=== PATIENT | female | born 1935 | race Caucasian/White ===

== ENCOUNTER 2018-02-11 09:39 | Emergency (ER) | payer MEDICARE, OTHER ==
[~2018-02-11] VITALS: Ht 165.1 cm; Wt 72.6 kg
[~2018-02-11 09:39] MED LIST: Aspir-Low81 MG PO; CARV6.25 PO; FURO20 PO; GLYBURIDE PO; HYDACE10B PO; INDERIDE; LEVSOD50 PO; POTCHL20ER PO; PRAV20 PO; SYNTHROID; UNK DIURETIC; VALD20 PO; VENLAFAXINE HC150 MG PO; ZOLP10 PO
[2018-02-11] MEDS ORDERED: ALLO300 PO (10:43)
[2018-02-11 10:52] LABS: BASOPHILS ABSOLUTE AUTO 0.05 K/mm3 (0.00-0.23); BASOPHILS PERCENT AUTO 0 % (0-2); EOSINOPHILS ABSOLUTE AUTO 0.17 K/mm3 (0.00-0.68); EOSINOPHILS PERCENT AUTO 1 % (0-6); Hemoglobin 11.2 g/dL (11.5-16.0); IMMATURE GRAN ABSOLUTE AUTO 0.14 K/mm3 (0.00-0.10); IMMATURE GRAN PERCENT AUTO 1 % (0-1); LYMPHOCYTES PERCENT AUTO 12 % (21-46); MONOCYTES ABSOLUTE AUTO 1.23 K/mm3 (0.16-1.47); MONOCYTES PERCENT AUTO 8 % (4-13); Mean Corpuscular HGB 30.5 pg (26.0-34.0); Mean Corpuscular HGB Conc 32.9 g/dL (31.5-36.5); Mean Corpuscular Volume 93 fL (80-100); Mean Platelet Volume 9.2 fL (9.1-12.4); NEUTROPHILS ABSOLUTE AUTO 12.03 K/mm3 (1.96-9.15); NEUTROPHILS PERCENT AUTO 78 % (41-73); Platelet Count 279 K/mm3 (150-400); RDW Coefficient Variation 13.7 % (11.7-14.2); RDW Standard Deviation 46.6 fL (35.1-46.3); Red Blood Cell Count 3.67 M/mm3 (3.80-5.20); White Blood Cell Count 15.52 K/mm3 (4.00-11.30)
[2018-02-11 11:17] LABS: Alanine Aminotransfer (ALT/SGP 33 U/L (12-78); Albumin, Blood 3.6 g/dL (3.4-5.0); Albumin/Globulin Ratio 0.9 (0.8-1.8); Alk Phos 68 U/L (50-136); Anion Gap 8 mmol/L (6-16); Aspartate Aminotrans (AST/SGOT 31 U/L (12-37); Bilirubin, Total 0.2 mg/dL (0.1-1.0); Blood Urea Nitrogen 26 mg/dL (8-24); Bun/Creatinine Ratio 20.5 (12.0-20.0); CO2, Blood 25 mmol/L (21-32); Chloride, Blood 103 mmol/L (98-108); Creatinine, Blood 1.27 mg/dL (0.40-1.00); Globulin, Blood 4.1 g/dL (2.2-4.0); Glomerular Filtration Rate 43 (60-); Glucose, Blood 147 mg/dL (70-99); Potassium, Blood 4.4 mmol/L (3.5-5.5); Sodium, Blood 136 mmol/L (136-145); Total Protein, Blood 7.7 g/dL (6.4-8.2); Troponin I <0.015 ng/mL (0.000-0.040)
[2018-02-11] MEDS ORDERED: Percocet 5-3251 EACH PO (13:49)
== END 2018-02-11 14:05 | disposition home or self-care (01) ==
LOC: ER 09:39 → MEDS 09:40 → ER 09:40 → MEDS 09:40 → ER 14:05 → PCU 15:05 → MEDS 15:05 → PCU 15:05
PROVIDERS: Emergency Medicine
DX: S42.251A Displaced fracture of greater tuberosity of right humerus, initial encounter for closed fracture (principal); S32.591A Other specified fracture of right pubis, initial encounter for closed fracture; S42.291A Other displaced fracture of upper end of right humerus, initial encounter for closed fracture; I10 Essential (primary) hypertension; E11.9 Type 2 diabetes mellitus without complications; E78.00 Pure hypercholesterolemia, unspecified; E03.9 Hypothyroidism, unspecified; F32.9 Major depressive disorder, single episode, unspecified; Z79.899 Other long term (current) drug therapy; Z79.82 Long term (current) use of aspirin; Z79.84 Long term (current) use of oral hypoglycemic drugs; W19.XXXA Unspecified fall, initial encounter; Y92.000 Kitchen of unspecified non-institutional (private) residence as the place of occurrence of the external cause
CPT/HCPCS: 29105; 72170; 73060; 73552; 80053; 83735; 84484; 85025; 93005; 93010; 96374; 96375; 99285-25; J2405; J3010

== ENCOUNTER 2018-02-15 23:41 | Inpatient (IN) | payer MEDICARE, OTHER ==
[~2018-02-15] VITALS: Ht 162.6 cm; Wt 76.9 kg
[~2018-02-15 23:41] MED LIST changes: +ALLO300 PO; +Percocet 5-3251 EACH PO
[2018-02-15] MEDS ORDERED: Hydrocodone-Ap1 EA20 PO (23:57)
[2018-02-16 02:09] LABS: BASOPHILS ABSOLUTE AUTO 0.03 K/mm3 (0.00-0.23); BASOPHILS PERCENT AUTO 0 % (0-2); EOSINOPHILS ABSOLUTE AUTO 0.22 K/mm3 (0.00-0.68); EOSINOPHILS PERCENT AUTO 2 % (0-6); Hematocrit 25.6 % (33.0-51.0); Hemoglobin 8.6 g/dL (11.5-16.0); IMMATURE GRAN ABSOLUTE AUTO 0.04 K/mm3 (0.00-0.10); IMMATURE GRAN PERCENT AUTO 0 % (0-1); LYMPHOCYTES ABSOLUTE AUTO 1.22 K/mm3 (0.84-5.20); LYMPHOCYTES PERCENT AUTO 14 % (21-46); MONOCYTES ABSOLUTE AUTO 0.73 K/mm3 (0.16-1.47); MONOCYTES PERCENT AUTO 8 % (4-13); Mean Corpuscular HGB 30.7 pg (26.0-34.0); Mean Corpuscular HGB Conc 33.6 g/dL (31.5-36.5); Mean Corpuscular Volume 91 fL (80-100); Mean Platelet Volume 9.4 fL (9.1-12.4); NEUTROPHILS ABSOLUTE AUTO 6.77 K/mm3 (1.96-9.15); NEUTROPHILS PERCENT AUTO 75 % (41-73); Platelet Count 244 K/mm3 (150-400); RDW Coefficient Variation 13.9 % (11.7-14.2); RDW Standard Deviation 46.2 fL (35.1-46.3); White Blood Cell Count 9.01 K/mm3 (4.00-11.30)
[2018-02-16 02:29] LABS: Alanine Aminotransfer (ALT/SGP 39 U/L (12-78); Albumin, Blood 2.4 g/dL (3.4-5.0); Albumin/Globulin Ratio 0.6 (0.8-1.8); Alk Phos 68 U/L (50-136); Anion Gap 15 mmol/L (6-16); Aspartate Aminotrans (AST/SGOT 59 U/L (12-37); Bilirubin, Total 0.4 mg/dL (0.1-1.0); Blood Urea Nitrogen 91 mg/dL (8-24); Bun/Creatinine Ratio 18.6 (12.0-20.0); CO2, Blood 19 mmol/L (21-32); Chloride, Blood 97 mmol/L (98-108); Globulin, Blood 4.3 g/dL (2.2-4.0); Glomerular Filtration Rate 9 (60-); Glucose, Blood 109 mg/dL (70-99); Potassium, Blood 5.3 mmol/L (3.5-5.5); Sodium, Blood 131 mmol/L (136-145); Total Protein, Blood 6.7 g/dL (6.4-8.2); Troponin I <0.015 ng/mL (0.000-0.040)
[2018-02-16 10:11] LABS: Source, Urine Catheter
[2018-02-16 10:30] LABS: Blood, Urine 1+ (Neg); Glucose Qualitative, Urine Neg (Neg); Ketones, Urine Neg (Neg); Leukocyte Esterase, Urine 1+ (Neg); Nitrite, Urine Neg (Neg); Protein, Urine 1+ (Neg); Urobilinogen, Urine NORM (Normal)
[2018-02-16 10:41] LABS: Appearance, Urine Hazy (Clear); Bilirubin, Urine 1+ (Neg); Color, Urine Yellow (P-Yellow)
[2018-02-16 10:42] LABS: Red Blood Cells, Urine 0-2 /hpf (0-2); Squamous Epithelial Cells Few /hpf (Few)
[2018-02-16 10:43] LABS: Bacteria Few /hpf; Granular Casts Rare /lpf (0)
[2018-02-16] MEDS ORDERED: CARV3.125 PO (12:28)
[2018-02-16] MEDS ORDERED: PRAV20 PO (12:30)
[2018-02-16] MEDS ORDERED: VENL150ER PO (12:36)
[2018-02-16] MEDS ORDERED: DONE5 PO (12:37)
[2018-02-16] MEDS ORDERED: PIOG30 PO (12:51)
[2018-02-16] MEDS ORDERED: HYDCHL25 PO (12:52)
[2018-02-16] MEDS ORDERED: LISI20 PO (12:52)
[2018-02-16] MEDS ORDERED: GLIM2 PO (12:53)
[2018-02-16] MEDS ORDERED: ZOLP10 PO (12:54)
[2018-02-16] MEDS ORDERED: LORA1 PO (12:55)
[2018-02-17 04:21] LABS: BASOPHILS ABSOLUTE AUTO 0.02 K/mm3 (0.00-0.23); BASOPHILS PERCENT AUTO 0 % (0-2); EOSINOPHILS ABSOLUTE AUTO 0.32 K/mm3 (0.00-0.68); EOSINOPHILS PERCENT AUTO 4 % (0-6); Hematocrit 24.7 % (33.0-51.0); IMMATURE GRAN ABSOLUTE AUTO 0.06 K/mm3 (0.00-0.10); IMMATURE GRAN PERCENT AUTO 1 % (0-1); LYMPHOCYTES PERCENT AUTO 22 % (21-46); MONOCYTES ABSOLUTE AUTO 0.89 K/mm3 (0.16-1.47); MONOCYTES PERCENT AUTO 11 % (4-13); Mean Corpuscular HGB 29.6 pg (26.0-34.0); Mean Corpuscular HGB Conc 32.4 g/dL (31.5-36.5); Mean Corpuscular Volume 92 fL (80-100); Mean Platelet Volume 9.4 fL (9.1-12.4); NEUTROPHILS ABSOLUTE AUTO 5.11 K/mm3 (1.96-9.15); NEUTROPHILS PERCENT AUTO 62 % (41-73); Platelet Count 260 K/mm3 (150-400); RDW Standard Deviation 46.1 fL (35.1-46.3)
[2018-02-17 04:46] LABS: Albumin, Blood 2.2 g/dL (3.4-5.0); Albumin/Globulin Ratio 0.5 (0.8-1.8); Bilirubin, Total 0.6 mg/dL (0.1-1.0); Bun/Creatinine Ratio 24.2 (12.0-20.0); Calcium, Blood 8.2 mg/dL (8.5-10.1); Creatinine, Blood 3.72 mg/dL (0.40-1.00); Globulin, Blood 4.4 g/dL (2.2-4.0); Potassium, Blood 4.8 mmol/L (3.5-5.5); Total Protein, Blood 6.6 g/dL (6.4-8.2)
[2018-02-17 04:52] LABS: Thyroid Stimulating Hormone 0.903 uIU/mL (0.360-4.800)
[2018-02-17 12:11] LABS: Bun/Creatinine Ratio 27.9 (12.0-20.0); Calcium, Blood 8.6 mg/dL (8.5-10.1); Creatinine, Blood 3.08 mg/dL (0.40-1.00); Potassium, Blood 4.5 mmol/L (3.5-5.5)
[2018-02-18 04:54] LABS: BASOPHILS ABSOLUTE AUTO 0.02 K/mm3 (0.00-0.23); BASOPHILS PERCENT AUTO 0 % (0-2); EOSINOPHILS ABSOLUTE AUTO 0.35 K/mm3 (0.00-0.68); EOSINOPHILS PERCENT AUTO 4 % (0-6); Hematocrit 26.9 % (33.0-51.0); Hemoglobin 8.8 g/dL (11.5-16.0); IMMATURE GRAN ABSOLUTE AUTO 0.18 K/mm3 (0.00-0.10); IMMATURE GRAN PERCENT AUTO 2 % (0-1); LYMPHOCYTES ABSOLUTE AUTO 1.55 K/mm3 (0.84-5.20); LYMPHOCYTES PERCENT AUTO 19 % (21-46); MONOCYTES ABSOLUTE AUTO 0.92 K/mm3 (0.16-1.47); MONOCYTES PERCENT AUTO 11 % (4-13); Mean Corpuscular HGB 29.8 pg (26.0-34.0); Mean Corpuscular HGB Conc 32.7 g/dL (31.5-36.5); Mean Corpuscular Volume 91 fL (80-100); Mean Platelet Volume 9.5 fL (9.1-12.4); NEUTROPHILS ABSOLUTE AUTO 5.32 K/mm3 (1.96-9.15); NEUTROPHILS PERCENT AUTO 64 % (41-73); Platelet Count 331 K/mm3 (150-400); RDW Coefficient Variation 14.2 % (11.7-14.2); RDW Standard Deviation 47.1 fL (35.1-46.3); Red Blood Cell Count 2.95 M/mm3 (3.80-5.20); White Blood Cell Count 8.34 K/mm3 (4.00-11.30)
[2018-02-19 04:17] LABS: Hematocrit 26.3 % (33.0-51.0); Hemoglobin 8.6 g/dL (11.5-16.0); Mean Corpuscular HGB 29.8 pg (26.0-34.0); Mean Corpuscular HGB Conc 32.7 g/dL (31.5-36.5); Mean Corpuscular Volume 91 fL (80-100); Mean Platelet Volume 9.1 fL (9.1-12.4); Platelet Count 366 K/mm3 (150-400); RDW Coefficient Variation 14.3 % (11.7-14.2); RDW Standard Deviation 47.2 fL (35.1-46.3); Red Blood Cell Count 2.89 M/mm3 (3.80-5.20)
[2018-02-19 04:36] LABS: Albumin, Blood 2.2 g/dL (3.4-5.0); Albumin/Globulin Ratio 0.5 (0.8-1.8); Bilirubin, Total 0.4 mg/dL (0.1-1.0); Bun/Creatinine Ratio 38.7 (12.0-20.0); Creatinine, Blood 1.19 mg/dL (0.40-1.00); Globulin, Blood 4.6 g/dL (2.2-4.0); Potassium, Blood 4.7 mmol/L (3.5-5.5); Total Protein, Blood 6.8 g/dL (6.4-8.2)
[2018-02-19 05:04] LABS: BAND PERCENT MAN 1 % (0-8); BASOPHILS PERCENT MAN 0 % (0-2); EOSINOPHILS ABSOLUTE MAN 0.08 K/mm3 (0.00-0.68); EOSINOPHILS PERCENT MAN 1 % (0-6); LYMPHOCYTES ABSOLUTE MAN 1.42 K/mm3 (0.84-5.20); LYMPHOCYTES PERCENT MAN 16 % (21-46); METAMYELOCYTE ABSOLUTE MAN 0.17 K/mm3 (0.00-0.00); METAMYELOCYTE PERCENT MAN 2 % (0-0); MONOCYTES ABSOLUTE MAN 0.26 K/mm3 (0.16-1.47); MONOCYTES PERCENT MAN 3 % (4-13); NEUTROPHILS ABSOLUTE MAN 6.94 K/mm3 (1.96-9.15); SEG NEUTROPHILS PERCENT MAN 77 % (41-73); TOTAL CELLS COUNTED 100
[2018-02-20 04:21] LABS: Hematocrit 26.6 % (33.0-51.0); Hemoglobin 8.6 g/dL (11.5-16.0); Mean Corpuscular HGB Conc 32.3 g/dL (31.5-36.5); Mean Corpuscular Volume 93 fL (80-100); Mean Platelet Volume 8.7 fL (9.1-12.4); Platelet Count 389 K/mm3 (150-400); RDW Coefficient Variation 14.4 % (11.7-14.2); RDW Standard Deviation 48.5 fL (35.1-46.3); Red Blood Cell Count 2.87 M/mm3 (3.80-5.20); White Blood Cell Count 9.98 K/mm3 (4.00-11.30)
[2018-02-20 04:39] LABS: Bun/Creatinine Ratio 32.6 (12.0-20.0); Calcium, Blood 8.9 mg/dL (8.5-10.1); Creatinine, Blood 0.98 mg/dL (0.40-1.00); Potassium, Blood 4.4 mmol/L (3.5-5.5)
[2018-02-20 04:46] LABS: Percent Saturation 8.9 % (15.0-50.0)
[2018-02-20 05:04] LABS: BAND PERCENT MAN 1 % (0-8); BASOPHILS PERCENT MAN 0 % (0-2); EOSINOPHILS ABSOLUTE MAN 0.49 K/mm3 (0.00-0.68); EOSINOPHILS PERCENT MAN 5 % (0-6); LYMPHOCYTES % ATYPICAL MANUAL 1 % (0-0); LYMPHOCYTES ABSOLUTE MAN 1.89 K/mm3 (0.84-5.20); LYMPHOCYTES PERCENT MAN 18 % (21-46); MONOCYTES ABSOLUTE MAN 0.79 K/mm3 (0.16-1.47); MONOCYTES PERCENT MAN 8 % (4-13); MYELOCYTE ABSOLUTE MAN 0.09 K/mm3 (0.00-0.00); MYELOCYTE PERCENT MAN 1 % (0-0); NEUTROPHILS ABSOLUTE MAN 6.68 K/mm3 (1.96-9.15); SEG NEUTROPHILS PERCENT MAN 66 % (41-73); TOTAL CELLS COUNTED 100
[2018-02-22] MEDS ORDERED: ACET325 PO (12:24)
[2018-02-22] MEDS ORDERED: AMLO5 PO (12:30)
[2018-02-22] MEDS ORDERED: Ferrous Sulfat325 M2 PO (12:31)
[2018-02-22] MEDS ORDERED: DOCU100 PO (12:31)
[2018-02-22] MEDS ORDERED: LEVO750 PO (12:32)
[2018-02-22] MEDS ORDERED: POLYOX WSR-3011 GM PO (12:33)
== END 2018-02-22 13:09 | disposition home health service (06) | DRG 177 ==
LOC: ER 23:41 → PCU 02-16 06:21 → SURS 02-16 14:12
PROVIDERS: Emergency Medicine; Internal Medicine
DX: J69.0 Pneumonitis due to inhalation of food and vomit (principal); G93.40 Encephalopathy, unspecified; N17.9 Acute kidney failure, unspecified; S32.9XXA Fracture of unspecified parts of lumbosacral spine and pelvis, initial encounter for closed fracture; S42.301D Unspecified fracture of shaft of humerus, right arm, subsequent encounter for fracture with routine healing; S32.9XXD Fracture of unspecified parts of lumbosacral spine and pelvis, subsequent encounter for fracture with routine healing; D50.9 Iron deficiency anemia, unspecified; E11.9 Type 2 diabetes mellitus without complications; I10 Essential (primary) hypertension; E78.5 Hyperlipidemia, unspecified; E03.9 Hypothyroidism, unspecified; M10.9 Gout, unspecified; D63.8 Anemia in other chronic diseases classified elsewhere; E86.0 Dehydration; K59.00 Constipation, unspecified; Z85.3 Personal history of malignant neoplasm of breast; Z85.42 Personal history of malignant neoplasm of other parts of uterus; Z79.84 Long term (current) use of oral hypoglycemic drugs; Z79.82 Long term (current) use of aspirin; Z79.899 Other long term (current) drug therapy
CPT/HCPCS: 36415; 70450; 71046; 72125; 73030; 73200; 74176; 76377; 80048; 80053; 81001; 82652; 82728; 82947; 83540; 83550; 83880; 84443; 84484; 85025; 85027; 87086; 92610; 93005; 93010; 94762; 96361; 96365; 97110; 97116; 97162; 97166; 97530; 97535; 99285-25; G8978; G8979; G8987; G8988; G8996; G8997; G8998; J1650; J1956; J2405; J3010; J7030

== ENCOUNTER 2022-04-01 06:13 | Day surgery (SDC) | payer MEDICARE, OTHER ==
[~2022-04-01] VITALS: Ht 162.6 cm; Wt 64.0 kg
[~2022-04-01 06:13] MED LIST changes: +ACET325 PO; +AMLO5 PO; +CARV3.125 PO; +Carvedilol12.5 MG PO; +DOCU100 PO; +DONEPEZIL HCL10 MG PO; +Ferrous Sulfat325 M2 PO; +GLIM2 PO; +GLIM4 PO; +HYDCHL25 PO; +HYDCHL50 PO; +Hydrocodone-Ap1 EA20 PO; +LEVO750 PO; +LISI20 PO; +LORA1 PO; +METO25ER PO; +PIOG30 PO; +POLYOX WSR-3011 GM PO; +VENL150ER PO; +XARELTO2.5 M1 PO; +Zestril40 MG PO
--- NOTE | 2022-04-01 10:15 | NUR ---
PT BACK TO RECOVERY ROOM VIA BED AFTER PROCEDURE. DROWSY, BUT EASILY ROUSES TO VERBAL STIMULI. LEFT GROIN SITE WITH TEGADERM AND SCOOBY PATCH. NO BLEEDING OR SWELLING AT SITE.
--- NOTE | 2022-04-01 11:04 | NUR ---
PT SLEEPING IN NO DISTRESS. VSS, CALL LIGHT IN REACH. LEFT GROIN SITE REMAINS SOFT AND NON-TENDER. DAUGHTER AT BEDSIDE.
--- NOTE | 2022-04-01 11:26 | NUR ---
RX FOR PLAVIX CALLED TO [facility] IN [place]
--- NOTE | 2022-04-01 12:34 | NUR ---
DR HAY AT BEDSIDE SPEAKING WITH PT AND DAUGHTER ABOUT PROCEDURE AND PLAN OF CARE.
--- NOTE | 2022-04-01 13:00 | NUR ---
IV DC'D, CATH INTACT. PT AND DAUGHTER GIVEN DC INSTRUCTIONS, VERBALIZED UNDERSTANDING. PT OUT TO CAR VIA WHEELCHAIR, WILL RETURN IN TWO WEEKS FOR LEFT LEG PROCEDURE.
[2022-04-04] MEDS ORDERED: LEVSOD75 PO (10:43)
[2022-04-04] MEDS ORDERED: Aspir 8181 MG PO (10:43)
[2022-04-04] MEDS ORDERED: Ativan1 MG PO (10:44)
[2022-04-04] MEDS ORDERED: 1/2 NS 250ml250 ML (10:44)
[2022-04-04] MEDS ORDERED: CLOP75 PO (10:44)
[2022-04-04] MEDS ORDERED: Hydrocortiso453.6 G1 (17:58)
[2022-04-04] MEDS ORDERED: Ketoconazole15 GM TOP (18:00)
[2022-04-04] MEDS ORDERED: MUPIROCIN1 G1 TOP (18:00)
[2022-04-04] MEDS ORDERED: [UNRECOGNIZED DRUG - CODE] (18:05)
[2022-04-04] MEDS ORDERED: Phenergan25 M1 PO (18:09)
== END 2022-04-01 13:00 | disposition home or self-care (01) ==
LOC: MHTC 06:13 → ORSCMMR 06:14 → MHTC 10:05
DX: E11.51 Type 2 diabetes mellitus with diabetic peripheral angiopathy without gangrene (principal); I70.213 Atherosclerosis of native arteries of extremities with intermittent claudication, bilateral legs; I10 Essential (primary) hypertension
CPT/HCPCS: 37221; 75625; 75716; 75774; 76937; 82947; 85347; 99152; 99153; C1725; C1760; C1769; C1876; C1887; C1894; C9764; C9772; J1644; J2250; J3010; J7030; J7040; J7042; Q9967

== ENCOUNTER → 2022-04-18 | Outpatient (CLI) | payer MEDICARE, OTHER ==
[~2022-04-18] MED LIST changes: +1/2 NS 250ml250 ML; +Amlodipine Bes2.5 MG PO; +Aspir 8181 MG PO; +Ativan1 MG PO; +CLOP75 PO; +Hydrocortiso453.6 G1; +Ketoconazole15 GM TOP; +LEVSOD75 PO; +MUPIROCIN1 G1 TOP; +Phenergan25 M1 PO; +SENN187 PO; +VANCOMYCIN HCL1 G1 IV; +VISBIOME 112.51 EACH PO; +[UNRECOGNIZED DRUG - CODE]
[2022-04-18 12:28] LABS: Hematocrit 32.6 % (33.0-51.0); Hemoglobin 10.8 g/dL (11.5-16.0); Mean Corpuscular HGB 30.8 pg (26.0-34.0); Mean Corpuscular HGB Conc 33.1 g/dL (31.5-36.5); Mean Corpuscular Volume 93 fL (80-100); Mean Platelet Volume 8.6 fL (9.1-12.4); Platelet Count 610 K/mm3 (150-400); RDW Coefficient Variation 14.5 % (11.7-14.2); RDW Standard Deviation 49.1 fL (35.1-46.3); Red Blood Cell Count 3.51 M/mm3 (3.80-5.20); White Blood Cell Count 7.28 K/mm3 (4.00-11.30)
[2022-04-18 12:48] LABS: Alanine Aminotransfer (ALT/SGP 26 U/L (12-78); Albumin, Blood 3.7 g/dL (3.4-5.0); Alk Phos 110 U/L (50-136); Anion Gap 5 mmol/L (6-16); Aspartate Aminotrans (AST/SGOT 23 U/L (12-37); Bilirubin, Total 0.3 mg/dL (0.1-1.0); Blood Urea Nitrogen 25 mg/dL (8-24); Bun/Creatinine Ratio 24.8 (12.0-20.0); CO2, Blood 28 mmol/L (21-32); Chloride, Blood 103 mmol/L (98-108); Creatinine, Blood 1.01 mg/dL (0.40-1.00); Globulin, Blood 3.8 g/dL (2.2-4.0); Glomerular Filtration Rate 54 (60-); Glucose, Blood 112 mg/dL (70-99); Potassium, Blood 4.4 mmol/L (3.5-5.5); Sodium, Blood 136 mmol/L (136-145); Total Protein, Blood 7.5 g/dL (6.4-8.2); Vancomycin, Trough 16.2 ug/mL (5.0-10.0)
== END | disposition home or self-care (01) ==
LOC: LAB 11:20 → LAB SHORT 11:20
PROVIDERS: Legal Medicine
DX: A41.9 Sepsis, unspecified organism (principal); I33.0 Acute and subacute infective endocarditis; R65.20 Severe sepsis without septic shock; Z79.899 Other long term (current) drug therapy
CPT/HCPCS: 80053; 80202; 85027

== ENCOUNTER → 2022-04-25 | Outpatient (CLI) | payer MEDICARE, OTHER ==
[2022-04-25 18:45] LABS: BASOPHILS ABSOLUTE AUTO 0.12 K/mm3 (0.00-0.23); BASOPHILS PERCENT AUTO 2 % (0-2); EOSINOPHILS ABSOLUTE AUTO 0.23 K/mm3 (0.00-0.68); EOSINOPHILS PERCENT AUTO 4 % (0-6); Hematocrit 33.9 % (33.0-51.0); Hemoglobin 11.1 g/dL (11.5-16.0); IMMATURE GRAN ABSOLUTE AUTO 0.01 K/mm3 (0.00-0.10); IMMATURE GRAN PERCENT AUTO 0 % (0-1); LYMPHOCYTES ABSOLUTE AUTO 2.28 K/mm3 (0.84-5.20); LYMPHOCYTES PERCENT AUTO 37 % (21-46); MONOCYTES ABSOLUTE AUTO 0.47 K/mm3 (0.16-1.47); MONOCYTES PERCENT AUTO 8 % (4-13); Mean Corpuscular HGB 30.4 pg (26.0-34.0); Mean Corpuscular HGB Conc 32.7 g/dL (31.5-36.5); Mean Corpuscular Volume 93 fL (80-100); Mean Platelet Volume 9.2 fL (9.1-12.4); NEUTROPHILS ABSOLUTE AUTO 3.06 K/mm3 (1.96-9.15); NEUTROPHILS PERCENT AUTO 50 % (41-73); Platelet Count 447 K/mm3 (150-400); RDW Coefficient Variation 14.6 % (11.7-14.2); RDW Standard Deviation 49.2 fL (35.1-46.3); Red Blood Cell Count 3.65 M/mm3 (3.80-5.20); White Blood Cell Count 6.17 K/mm3 (4.00-11.30)
[2022-04-25 20:14] LABS: Alanine Aminotransfer (ALT/SGP 35 U/L (12-78); Albumin, Blood 3.7 g/dL (3.4-5.0); Albumin/Globulin Ratio 0.9 (0.8-1.8); Alk Phos 96 U/L (50-136); Anion Gap 7 mmol/L (6-16); Aspartate Aminotrans (AST/SGOT 28 U/L (12-37); Bilirubin, Total 0.4 mg/dL (0.1-1.0); Blood Urea Nitrogen 31 mg/dL (8-24); Bun/Creatinine Ratio 32.9 (12.0-20.0); CO2, Blood 25 mmol/L (21-32); Calcium, Blood 8.8 mg/dL (8.5-10.1); Chloride, Blood 104 mmol/L (98-108); Creatinine, Blood 0.94 mg/dL (0.40-1.00); Globulin, Blood 4.1 g/dL (2.2-4.0); Glomerular Filtration Rate 59 (60-); Glucose, Blood 148 mg/dL (70-99); Potassium, Blood 4.5 mmol/L (3.5-5.5); Sodium, Blood 136 mmol/L (136-145); Total Protein, Blood 7.8 g/dL (6.4-8.2); Vancomycin, Trough 20.8 ug/mL (5.0-10.0)
== END | disposition home or self-care (01) ==
LOC: LAB 17:51 → LAB SHORT 17:51
PROVIDERS: Legal Medicine
DX: E11.65 Type 2 diabetes mellitus with hyperglycemia (principal)
CPT/HCPCS: 80053; 80202; 85025

== ENCOUNTER 2023-03-10 08:46 | Emergency (ER) | payer OTHER ==
[~2023-03-10] VITALS: Ht 165.1 cm; Wt 61.2 kg
[2023-03-10] MEDS ORDERED: HYDCHL25 PO (09:15)
[2023-03-10 09:59] LABS: BASOPHILS ABSOLUTE AUTO 0.06 K/mm3 (0.00-0.23); BASOPHILS PERCENT AUTO 1 % (0-2); EOSINOPHILS PERCENT AUTO 6 % (0-6); Hematocrit 36.4 % (33.0-51.0); Hemoglobin 12.6 g/dL (11.5-16.0); IMMATURE GRAN ABSOLUTE AUTO 0.03 K/mm3 (0.00-0.10); IMMATURE GRAN PERCENT AUTO 0 % (0-1); LYMPHOCYTES ABSOLUTE AUTO 3.22 K/mm3 (0.84-5.20); LYMPHOCYTES PERCENT AUTO 35 % (21-46); MONOCYTES ABSOLUTE AUTO 0.82 K/mm3 (0.16-1.47); MONOCYTES PERCENT AUTO 9 % (4-13); Mean Corpuscular HGB Conc 34.6 g/dL (31.5-36.5); Mean Corpuscular Volume 89 fL (80-100); Mean Platelet Volume 9.3 fL (9.1-12.4); NEUTROPHILS ABSOLUTE AUTO 4.46 K/mm3 (1.96-9.15); NEUTROPHILS PERCENT AUTO 49 % (41-73); Platelet Count 277 K/mm3 (150-400); RDW Coefficient Variation 13.3 % (11.7-14.2); RDW Standard Deviation 43.3 fL (35.1-46.3); Red Blood Cell Count 4.07 M/mm3 (3.80-5.20); White Blood Cell Count 9.09 K/mm3 (4.00-11.30)
[2023-03-10 10:22] LABS: Albumin, Blood 4.1 g/dL (3.4-5.0); Bilirubin, Total 0.4 mg/dL (0.1-1.0); Bun/Creatinine Ratio 31.6 (12.0-20.0); Calcium, Blood 9.2 mg/dL (8.5-10.1); Creatinine, Blood 1.36 mg/dL (0.40-1.00); Globulin, Blood 4.3 g/dL (2.2-4.0); Magnesium, Blood 2.4 mg/dL (1.6-2.4); Potassium, Blood 4.7 mmol/L (3.5-5.5); Total Protein, Blood 8.4 g/dL (6.4-8.2)
[2023-03-10 12:00] VITALS: BP 170/74
== END 2023-03-10 12:58 | disposition home or self-care (01) ==
LOC: ER 08:46
PROVIDERS: Student in an Organized Health Care Education/Training Program
DX: S06.5XAA Traumatic subdural hemorrhage with loss of consciousness status unknown, initial encounter (principal); S12.121A Other nondisplaced dens fracture, initial encounter for closed fracture; R55 Syncope and collapse; I10 Essential (primary) hypertension; E11.9 Type 2 diabetes mellitus without complications; Z79.82 Long term (current) use of aspirin; Z79.890 Hormone replacement therapy; Z79.899 Other long term (current) drug therapy; Z79.02 Long term (current) use of antithrombotics/antiplatelets; Z95.0 Presence of cardiac pacemaker; W19.XXXA Unspecified fall, initial encounter
CPT/HCPCS: 70450; 71045; 72125; 80053; 83735; 83880; 84484; 85025; 93005; 93010; 99285-25; L0160

== ENCOUNTER 2024-01-27 12:48 | Inpatient (IN) | payer OTHER ==
[~2024-01-27] VITALS: Ht 162.6 cm; Wt 81.6 kg
[2024-01-27] MEDS ORDERED: NS 1,000 ML IV ONE ×2 (13:15→16:32)
[2024-01-27] MEDS ORDERED: NS 1,000 ML IV SCH ×3 (13:20→16:35)
[2024-01-27] MEDS ORDERED: CALCIUM GLUC IN NACL, ISO-OSM 50 ML IV ONE (13:30)
[2024-01-27 13:32] LABS: BASOPHILS ABSOLUTE AUTO 0.06 K/mm3 (0.00-0.23); BASOPHILS PERCENT AUTO 1 % (0-2); EOSINOPHILS ABSOLUTE AUTO 0.36 K/mm3 (0.00-0.68); EOSINOPHILS PERCENT AUTO 3 % (0-6); IMMATURE GRAN ABSOLUTE AUTO 0.15 K/mm3 (0.00-0.10); IMMATURE GRAN PERCENT AUTO 1 % (0-1); LYMPHOCYTES ABSOLUTE AUTO 4.65 K/mm3 (0.84-5.20); LYMPHOCYTES PERCENT AUTO 37 % (21-46); MONOCYTES ABSOLUTE AUTO 0.28 K/mm3 (0.16-1.47); MONOCYTES PERCENT AUTO 2 % (4-13); Mean Corpuscular HGB 30.6 pg (26.0-34.0); Mean Corpuscular HGB Conc 33.3 g/dL (31.5-36.5); Mean Corpuscular Volume 92 fL (80-100); Mean Platelet Volume 9.4 fL (9.1-12.4); NEUTROPHILS ABSOLUTE AUTO 6.92 K/mm3 (1.96-9.15); NEUTROPHILS PERCENT AUTO 56 % (41-73); Platelet Count 303 K/mm3 (150-400); RDW Coefficient Variation 13.1 % (11.7-14.2); Red Blood Cell Count 5.23 M/mm3 (3.80-5.20); White Blood Cell Count 12.42 K/mm3 (4.00-11.30)
[2024-01-27 14:05] LABS: Albumin/Globulin Ratio 0.8 (0.8-1.8); Bun/Creatinine Ratio 24.6 (12.0-20.0); Calcium, Blood 8.7 mg/dL (8.5-10.1); Creatinine, Blood 1.34 mg/dL (0.40-1.00); Globulin, Blood 3.8 g/dL (2.2-4.0); Potassium, Blood 4.6 mmol/L (3.5-5.5); Total Protein, Blood 6.8 g/dL (6.4-8.2)
[2024-01-27] MEDS ORDERED: Lactated Ringer's 1,000 ML IV SCH (14:45)
[2024-01-27] MEDS ORDERED: Acetaminophen 325 MG TABLET PO PRN (16:20)
[2024-01-27] MEDS ORDERED: NS 500 ML IV STA (17:11)
[2024-01-27 17:57] LABS: Thyroid Stimulating Hormone 0.448 uIU/mL (0.360-4.800)
[2024-01-27] MEDS ORDERED: Insulin Human Lispro 100 Units/ML 3ML Syringe SC SCH (21:00)
[2024-01-27] MEDS ORDERED: Dextrose 50% 50 ML Vial ONE (21:13)
[2024-01-27] MEDS ORDERED: Dextrose 50% 50 ML Syringe IV ONE (21:15)
[2024-01-27] MEDS ORDERED: D5W-1/2NS 1,000 ML IV SCH (21:20)
[2024-01-28] VITALS (52 sets, daily range): BP systolic 65–156; BP diastolic 28–127
[2024-01-28] MEDS ORDERED: OxyCODONE HCL 5 MG TAB PO PRN (04:00)
[2024-01-28 04:26] LABS: Hematocrit 47.6 % (33.0-51.0); Hemoglobin 15.3 g/dL (11.5-16.0); Mean Corpuscular HGB 30.6 pg (26.0-34.0); Mean Corpuscular HGB Conc 32.1 g/dL (31.5-36.5); Mean Corpuscular Volume 95 fL (80-100); Mean Platelet Volume 9.5 fL (9.1-12.4); Platelet Count 207 K/mm3 (150-400); RDW Coefficient Variation 13.6 % (11.7-14.2); RDW Standard Deviation 47.5 fL (35.1-46.3); White Blood Cell Count 16.86 K/mm3 (4.00-11.30)
[2024-01-28 04:45] LABS: Albumin, Blood 2.4 g/dL (3.4-5.0); Albumin/Globulin Ratio 0.7 (0.8-1.8); Bilirubin, Total 0.9 mg/dL (0.1-1.0); Bun/Creatinine Ratio 20.2 (12.0-20.0); Calcium, Blood 7.7 mg/dL (8.5-10.1); Creatinine, Blood 1.83 mg/dL (0.40-1.00); Globulin, Blood 3.5 g/dL (2.2-4.0); Potassium, Blood 5.1 mmol/L (3.5-5.5); Total Protein, Blood 5.9 g/dL (6.4-8.2)
[2024-01-28] MEDS ORDERED: FentaNYL Citrate 50 MCG/ML 2 ML Injection IV PRN ×2 (07:40→12:04)
[2024-01-28] MEDS ORDERED: NS 1,000 ML IV SCH ×2 (07:40→08:55)
[2024-01-28] MEDS ORDERED: Dextrose 50% 50 ML Syringe ONE (07:42)
[2024-01-28 08:36] LABS: Source, Urine Straight Cath
[2024-01-28] MEDS ORDERED: D5W-1/2NS 1,000 ML IV SCH (08:55)
[2024-01-28] MEDS ORDERED: Enoxaparin 30 MG/0.3 ML SYR SC SCH (09:00)
[2024-01-28 09:01] LABS: Appearance, Urine Clear (Clear); Blood, Urine 1+ (Neg); Color, Urine Amber (P-Yellow); Glucose Qualitative, Urine Neg (Neg); Ketones, Urine 1+ (Neg); Leukocyte Esterase, Urine 1+ (Neg); Nitrite, Urine Neg (Neg); Protein, Urine 3+ (Neg); Urobilinogen, Urine 3+ (Normal)
[2024-01-28] MEDS ORDERED: Piperacillin/Tazobactam Sod 3.375 GM in NS 100 ML IV ONE (09:05)
[2024-01-28 09:09] LABS: Bilirubin, Urine 2+ (Neg)
[2024-01-28 09:12] LABS: Amorphous Light (0-Heavy); Bacteria Mod /hpf; Squamous Epithelial Cells Rare /hpf (Few)
[2024-01-28 09:13] LABS: Calcium Oxalate Crystals Few /hpf
[2024-01-28 09:15] LABS: PCO2 Arterial 26.3 mmHg (35-45); PO2 Arterial 159 mmHg (80-100); pH Blood Arterial 7.28 (7.35-7.45)
[2024-01-28] MEDS ORDERED: Sodium Bicarb 8.4% 1 MEQ/ML 50 ML Vial IV ONE (09:50)
[2024-01-28 11:02] LABS: Anti-Xa UFH, PHA Monitoring <0.10 IU/mL; International Normalized Ratio 1.43; Prothrombin Time Results 14.9 Sec (9.7-11.5)
[2024-01-28] MEDS ORDERED: Dose Adjust by Pharmacy XX STA ×2 (11:16→17:58)
[2024-01-28] MEDS ORDERED: Heparin Sodium 5000 Units/ML 1ML MDV IV ONE (11:20)
[2024-01-28] MEDS ORDERED: Heparin Sodium,Porcine/0.5 NS 500 ML IV SCH (11:20)
[2024-01-28 12:43] LABS: Adenovirus F 40/41 Not Detected (NOT DETECT); Astrovirus Not Detected (NOT DETECT); Campylobacter Sp Not Detected (NOT DETECT); Cryptosporidium Not Detected (NOT DETECT); Cyclospora Cayetanensis Not Detected (NOT DETECT); E. Coli O157 Not Detected (NOT DETECT); Entamoeba Histolytica Not Detected (NOT DETECT); Enteroaggregative E. coli-EAEC Not Detected (NOT DETECT); Enteropathogenic E. coli-EPEC Not Detected (NOT DETECT); Enterotoxigenic E. coli-ETEC Not Detected (NOT DETECT); Giardia Lamblia Not Detected (NOT DETECT); Norovirus GI/GII Not Detected (NOT DETECT); Plesiomonas Shigelloides Not Detected (NOT DETECT); Rotavirus A Not Detected (NOT DETECT); Salmonella Sp Not Detected (NOT DETECT); Sapovirus Not Detected (NOT DETECT); Shiga Toxin-prod E. coli-STEC Not Detected (NOT DETECT); Shigella/Enteroin E. coli-EIEC Not Detected (NOT DETECT); Vibrio Cholerae Not Detected (NOT DETECT); Vibrio Sp Not Detected (NOT DETECT); Yersinia Enterocolitica Not Detected (NOT DETECT)
[2024-01-28 12:53] LABS: Beta-hydroxybutyrate 1.3 mg/dL (0.2-2.8); Bun/Creatinine Ratio 19.3 (12.0-20.0); Calcium, Blood 6.9 mg/dL (8.5-10.1); Creatinine, Blood 2.33 mg/dL (0.40-1.00); Magnesium, Blood 2.5 mg/dL (1.6-2.4); Phosphorus, Blood 3.9 mg/dL (2.5-4.9); Potassium, Blood 4.2 mmol/L (3.5-5.5)
[2024-01-28] MEDS ORDERED: NS 1,000 ML IV ONE ×2 (13:42→14:09)
[2024-01-28] MEDS ORDERED: Heparin Sodium 1000 Units/ML 10ML MDV ONE (13:42)
[2024-01-28] MEDS ORDERED: NS 250 ML IV ONE (13:43)
[2024-01-28] MEDS ORDERED: FentaNYL Citrate 50 MCG/ML 2 ML Injection ONE ×2 (14:09→19:22)
[2024-01-28] MEDS ORDERED: GLIMEPIRIDE4 MG PO (15:26)
[2024-01-28] MEDS ORDERED: Alteplase Recombinant 2 MG / Vial ONE (15:29)
[2024-01-28] MEDS ORDERED: HYDROCODONE-AC1 EAC7 PO (15:32)
[2024-01-28] MEDS ORDERED: ZOLPIDEM TARTRA10 MG PO (15:33)
[2024-01-28] MEDS ORDERED: PRAVASTATIN SOD20 MG PO (15:34)
[2024-01-28] MEDS ORDERED: ALLOPURINOL100 M1 PO (15:34)
[2024-01-28] MEDS ORDERED: Effexor Xr150 MG PO (15:35)
[2024-01-28] MEDS ORDERED: LISI20 PO (15:35)
[2024-01-28] MEDS ORDERED: SYNTHROID75 MCG PO (15:36)
[2024-01-28] MEDS ORDERED: Hydrocortiso453.6 G1 TOP (15:37)
[2024-01-28] MEDS ORDERED: Ketoconazole15 GM TOP (15:38)
[2024-01-28] MEDS ORDERED: CARVEDILOL12.5 MG PO (15:39)
[2024-01-28] MEDS ORDERED: Dextrose 50% 50 ML Vial ONE (17:48)
[2024-01-28] MEDS ORDERED: Dextrose 50% 50 ML Vial IV ONE (17:55)
[2024-01-28] MEDS ORDERED: propofoL 20 ML IV ONE (19:22)
[2024-01-28] MEDS ORDERED: Rocuronium Bromide 10 MG/ML 5ML Injection IV ONE ×2 (19:22→20:22)
[2024-01-28] MEDS ORDERED: Lidocaine HCl 2% 20 ML MDV ONE (19:22)
[2024-01-28] MEDS ORDERED: Dexamethasone Sod Phos 10 MG/ML 1ML VIAL ONE (19:22)
[2024-01-28] MEDS ORDERED: Ondansetron HCl 2 MG / ML 2ML Vial ONE (19:22)
[2024-01-28 19:52] LABS: Base Excess Venous -11.9 mmol/L; Bicarbonate Venous 15.9 mmol/L (24.0-30.0); PCO2 Venous 29.9 mmHg (38-42)
[2024-01-28 20:00] LABS: Hematocrit 32.8 % (33.0-51.0); Hemoglobin 11.3 g/dL (11.5-16.0); Mean Corpuscular HGB 30.7 pg (26.0-34.0); Mean Corpuscular HGB Conc 34.5 g/dL (31.5-36.5); Mean Corpuscular Volume 89 fL (80-100); Mean Platelet Volume 10.2 fL (9.1-12.4); Platelet Count 181 K/mm3 (150-400); RDW Coefficient Variation 13.9 % (11.7-14.2); RDW Standard Deviation 45.4 fL (35.1-46.3); Red Blood Cell Count 3.68 M/mm3 (3.80-5.20); White Blood Cell Count 8.42 K/mm3 (4.00-11.30)
[2024-01-28] MEDS ORDERED: Etomidate 2MG / ML 10ML Vial ONE (20:06)
[2024-01-28 20:16] LABS: Albumin, Blood 1.8 g/dL (3.4-5.0); Albumin/Globulin Ratio 0.7 (0.8-1.8); Bilirubin, Total 0.6 mg/dL (0.1-1.0); Bun/Creatinine Ratio 19.4 (12.0-20.0); Calcium, Blood 6.7 mg/dL (8.5-10.1); Creatinine, Blood 2.37 mg/dL (0.40-1.00); Globulin, Blood 2.7 g/dL (2.2-4.0); Potassium, Blood 4.8 mmol/L (3.5-5.5); Total Protein, Blood 4.5 g/dL (6.4-8.2)
[2024-01-28] MEDS ORDERED: EpiNEPhrine 1 MG/1 ML 1ML Vial ONE (20:16)
[2024-01-28] MEDS ORDERED: Phenylephrine HCl 100 MCG/ML-NS 10MLSYR (1MG/10ML) ONE (20:16)
[2024-01-28 20:32] LABS: BAND PERCENT MAN 27 % (0-8); BASOPHILS PERCENT MAN 0 % (0-2); EOSINOPHILS PERCENT MAN 0 % (0-6); LYMPHOCYTES ABSOLUTE MAN 1.85 K/mm3 (0.84-5.20); LYMPHOCYTES PERCENT MAN 22 % (21-46); METAMYELOCYTE ABSOLUTE MAN 0.33 K/mm3 (0.00-0.00); METAMYELOCYTE PERCENT MAN 4 % (0-0); MONOCYTES ABSOLUTE MAN 0.33 K/mm3 (0.16-1.47); MONOCYTES PERCENT MAN 4 % (4-13); MYELOCYTE ABSOLUTE MAN 0.16 K/mm3 (0.00-0.00); MYELOCYTE PERCENT MAN 2 % (0-0); NEUTROPHILS ABSOLUTE MAN 5.72 K/mm3 (1.96-9.15); SEG NEUTROPHILS PERCENT MAN 41 % (41-73); TOTAL CELLS COUNTED 100
[2024-01-28] MEDS ORDERED: Piperacillin/Tazobactam Sod 3.375 GM in NS 100 ML IV SCH (21:00)
[2024-01-28] MEDS ORDERED: Hydrocortisone Sod Succinate 100 MG Vial IV ONE (22:15)
[2024-01-28] MEDS ORDERED: NS IV SCH (22:20)
[2024-01-28] MEDS ORDERED: propofoL 100 ML IV SCH (22:20)
[2024-01-28] MEDS ORDERED: PHENYLEPHRINE HCL IV SCH (22:20)
[2024-01-28 22:21] LABS: Bicarbonate Venous 13.4 mmol/L (24.0-30.0); PCO2 Venous 45.3 mmHg (38-42); pH Blood Venous 7.13 (7.34-7.37)
[2024-01-28 22:22] LABS: Base Excess Venous -14.3 mmol/L
[2024-01-28] MEDS ORDERED: CALCIUM GLUC IN NACL, ISO-OSM 50 ML IV ONE (22:30)
[2024-01-28] MEDS ORDERED: NS 250 ML IV PRN (23:05)
[2024-01-28 23:44] LABS: Bicarbonate Venous 13.5 mmol/L (24.0-30.0); PCO2 Venous 33.5 mmHg (38-42)
[2024-01-28 23:45] LABS: Base Excess Venous -14.8 mmol/L
[2024-01-29] VITALS (60 sets, daily range): BP systolic 71–164; BP diastolic 22–87
[2024-01-29] MEDS ORDERED: Hydrogen Peroxide 1.5 % Solution MT SCH
[2024-01-29 00:30] LABS: Bun/Creatinine Ratio 18.8 (12.0-20.0); Calcium, Blood 6.8 mg/dL (8.5-10.1); Creatinine, Blood 2.34 mg/dL (0.40-1.00); Potassium, Blood 5.2 mmol/L (3.5-5.5)
[2024-01-29 04:40] LABS: Hematocrit 34.4 % (33.0-51.0); Hemoglobin 11.6 g/dL (11.5-16.0); Mean Corpuscular HGB 30.6 pg (26.0-34.0); Mean Corpuscular HGB Conc 33.7 g/dL (31.5-36.5); Mean Corpuscular Volume 91 fL (80-100); Platelet Count 188 K/mm3 (150-400); RDW Coefficient Variation 14.6 % (11.7-14.2); RDW Standard Deviation 48.8 fL (35.1-46.3); Red Blood Cell Count 3.79 M/mm3 (3.80-5.20); White Blood Cell Count 8.51 K/mm3 (4.00-11.30)
[2024-01-29 04:59] LABS: Albumin, Blood 1.7 g/dL (3.4-5.0); Albumin/Globulin Ratio 0.6 (0.8-1.8); Bilirubin, Total 0.9 mg/dL (0.1-1.0); Calcium, Blood 6.7 mg/dL (8.5-10.1); Creatinine, Blood 2.45 mg/dL (0.40-1.00); Globulin, Blood 2.9 g/dL (2.2-4.0); Magnesium, Blood 2.2 mg/dL (1.6-2.4); Phosphorus, Blood 5.4 mg/dL (2.5-4.9); Potassium, Blood 5.3 mmol/L (3.5-5.5); Total Protein, Blood 4.6 g/dL (6.4-8.2)
[2024-01-29 05:10] LABS: BAND PERCENT MAN 23 % (0-8); BASOPHILS PERCENT MAN 0 % (0-2); EOSINOPHILS PERCENT MAN 0 % (0-6); LYMPHOCYTES ABSOLUTE MAN 1.27 K/mm3 (0.84-5.20); LYMPHOCYTES PERCENT MAN 15 % (21-46); METAMYELOCYTE ABSOLUTE MAN 0.59 K/mm3 (0.00-0.00); METAMYELOCYTE PERCENT MAN 7 % (0-0); MONOCYTES ABSOLUTE MAN 0.25 K/mm3 (0.16-1.47); MONOCYTES PERCENT MAN 3 % (4-13); NEUTROPHILS ABSOLUTE MAN 6.38 K/mm3 (1.96-9.15); SEG NEUTROPHILS PERCENT MAN 52 % (41-73); TOTAL CELLS COUNTED 100
[2024-01-29] MEDS ORDERED: Dose Adjust by Pharmacy XX STA (07:18)
[2024-01-29] MEDS ORDERED: Vasopressin 20 UNITS in NS 100 ML IV SCH (07:45)
[2024-01-29] MEDS ORDERED: NS 1,000 ML IV SCH (07:45)
[2024-01-29] MEDS ORDERED: Albumin (Human) 25gm/100ml 100 ML IV SCH (07:45)
[2024-01-29] MEDS ORDERED: Cetylpyridinium Chloride 1 EA MISC MT SCH (08:00)
[2024-01-29 13:21] LABS: PCO2 Arterial 17.8 mmHg (35-45); PO2 Arterial 396 mmHg (80-100); pH Blood Arterial 7.25 (7.35-7.45)
[2024-01-29] MEDS ORDERED: Albumin (Human) 25gm/100ml 100 ML IV ONE (13:35)
[2024-01-29 16:11] LABS: Albumin, Blood 3.2 g/dL (3.4-5.0); Anion Gap 23 mmol/L (3-11); Blood Urea Nitrogen 45 mg/dL (8-24); Bun/Creatinine Ratio 16.7 (12.0-20.0); CO2, Blood 7 mmol/L (21-32); Calcium, Blood 6.6 mg/dL (8.5-10.1); Chloride, Blood 109 mmol/L (98-108); Glomerular Filtration Rate 16 (60-); Glucose, Blood 40 mg/dL (70-99); Phosphorus, Blood 5.9 mg/dL (2.5-4.9); Potassium, Blood 5.6 mmol/L (3.5-5.5); Sodium, Blood 133 mmol/L (136-145)
[2024-01-29] MEDS ORDERED: Dextrose 50% 50 ML Vial ONE (16:21)
[2024-01-29] MEDS ORDERED: Sodium Bicarb 8.4% Inj 150 MEQ in Dextrose 5% 1,000 ML IV SCH (16:30)
[2024-01-29 16:57] LABS: PCO2 Arterial 17.9 mmHg (35-45); PO2 Arterial 119 mmHg (80-100); pH Blood Arterial 7.17 (7.35-7.45)
[2024-01-29] MEDS ORDERED: Artificial Tear Opth Oint 3.5 GM BOTHEYES PRN (17:15)
[2024-01-29] MEDS ORDERED: Sodium Bicarb 8.4% 1 MEQ/ML 50 ML Vial IV ONE (17:30)
[2024-01-29 20:56] LABS: PCO2 Arterial 19.1 mmHg (35-45); PO2 Arterial 132 mmHg (80-100); pH Blood Arterial 7.29 (7.35-7.45)
[2024-01-29 22:46] LABS: Albumin, Blood 2.7 g/dL (3.4-5.0); Anion Gap 25 mmol/L (3-11); Blood Urea Nitrogen 47 mg/dL (8-24); Bun/Creatinine Ratio 16.4 (12.0-20.0); CO2, Blood 9 mmol/L (21-32); Calcium, Blood 6.3 mg/dL (8.5-10.1); Chloride, Blood 106 mmol/L (98-108); Creatinine, Blood 2.87 mg/dL (0.40-1.00); Glomerular Filtration Rate 15 (60-); Glucose, Blood 147 mg/dL (70-99); Phosphorus, Blood 5.8 mg/dL (2.5-4.9); Potassium, Blood 4.8 mmol/L (3.5-5.5); Sodium, Blood 135 mmol/L (136-145)
[2024-01-30 02:58] LABS: pH Blood Arterial 7.37 (7.35-7.45)
[2024-01-30 02:59] LABS: PCO2 Arterial 19.1 mmHg (35-45); PO2 Arterial 130 mmHg (80-100)
[2024-01-30 05:34] LABS: Hematocrit 23.2 % (33.0-51.0); Mean Corpuscular HGB 30.1 pg (26.0-34.0); Mean Corpuscular HGB Conc 34.5 g/dL (31.5-36.5); Mean Corpuscular Volume 87 fL (80-100); NRBC ABSOLUTE 0.02 K/mm3 (0.00-0.02); NRBC Auto 0.3 /100 WBC (0.0-0.2); Platelet Count 102 K/mm3 (150-400); RDW Coefficient Variation 14.8 % (11.7-14.2); RDW Standard Deviation 47.3 fL (35.1-46.3); Red Blood Cell Count 2.66 M/mm3 (3.80-5.20); White Blood Cell Count 5.73 K/mm3 (4.00-11.30)
[2024-01-30 06:00] LABS: Albumin, Blood 2.2 g/dL (3.4-5.0); Anion Gap 26 mmol/L (3-11); Blood Urea Nitrogen 49 mg/dL (8-24); CO2, Blood 12 mmol/L (21-32); Calcium, Blood 6.3 mg/dL (8.5-10.1); Chloride, Blood 101 mmol/L (98-108); Creatinine, Blood 2.88 mg/dL (0.40-1.00); Glomerular Filtration Rate 15 (60-); Glucose, Blood 170 mg/dL (70-99); Phosphorus, Blood 5.6 mg/dL (2.5-4.9); Potassium, Blood 4.5 mmol/L (3.5-5.5); Sodium, Blood 134 mmol/L (136-145)
[2024-01-30 06:37] LABS: BAND PERCENT MAN 19 % (0-8); BASOPHILS ABSOLUTE MAN 0.05 K/mm3 (0.00-0.23); BASOPHILS PERCENT MAN 1 % (0-2); EOSINOPHILS ABSOLUTE MAN 0.22 K/mm3 (0.00-0.68); EOSINOPHILS PERCENT MAN 4 % (0-6); LYMPHOCYTES ABSOLUTE MAN 1.08 K/mm3 (0.84-5.20); LYMPHOCYTES PERCENT MAN 19 % (21-46); METAMYELOCYTE ABSOLUTE MAN 0.17 K/mm3 (0.00-0.00); METAMYELOCYTE PERCENT MAN 3 % (0-0); MONOCYTES ABSOLUTE MAN 0.45 K/mm3 (0.16-1.47); MONOCYTES PERCENT MAN 8 % (4-13); NEUTROPHILS ABSOLUTE MAN 3.72 K/mm3 (1.96-9.15); SEG NEUTROPHILS PERCENT MAN 46 % (41-73); TOTAL CELLS COUNTED 100
[2024-01-30] MEDS ORDERED: Dextrose 50% 50 ML Syringe IV ONE (08:05)
[2024-01-30] MEDS ORDERED: Dose Adjust by Pharmacy XX STA (11:18)
[2024-01-30 16:54] LABS: Albumin, Blood 1.7 g/dL (3.4-5.0); Anion Gap 24 mmol/L (3-11); Blood Urea Nitrogen 46 mg/dL (8-24); Bun/Creatinine Ratio 17.3 (12.0-20.0); CO2, Blood 17 mmol/L (21-32); Calcium, Blood 6.5 mg/dL (8.5-10.1); Chloride, Blood 94 mmol/L (98-108); Creatinine, Blood 2.66 mg/dL (0.40-1.00); Glomerular Filtration Rate 17 (60-); Glucose, Blood 150 mg/dL (70-99); Phosphorus, Blood 3.9 mg/dL (2.5-4.9); Potassium, Blood 4.1 mmol/L (3.5-5.5); Sodium, Blood 131 mmol/L (136-145)
[2024-01-30] MEDS ORDERED: NS 1,000 ML IV ONE (17:20)
[2024-01-30] MEDS ORDERED: Albumin (Human) 25gm/100ml 100 ML IV ONE (17:30)
[2024-01-30 17:47] LABS: PCO2 Arterial 20.4 mmHg (35-45); PO2 Arterial 117 mmHg (80-100); pH Blood Arterial 7.52 (7.35-7.45)
[2024-01-30 19:34] LABS: Hematocrit 20.8 % (33.0-51.0); Hemoglobin 7.5 g/dL (11.5-16.0); Mean Corpuscular HGB 30.5 pg (26.0-34.0); Mean Corpuscular HGB Conc 36.1 g/dL (31.5-36.5); Mean Corpuscular Volume 85 fL (80-100); NRBC ABSOLUTE 0.07 K/mm3 (0.00-0.02); NRBC Auto 1.1 /100 WBC (0.0-0.2); Platelet Count 86 K/mm3 (150-400); RDW Coefficient Variation 14.2 % (11.7-14.2); RDW Standard Deviation 44.2 fL (35.1-46.3); Red Blood Cell Count 2.46 M/mm3 (3.80-5.20)
[2024-01-30 19:54] LABS: BAND PERCENT MAN 13 % (0-8); BASOPHILS ABSOLUTE MAN 0.06 K/mm3 (0.00-0.23); BASOPHILS PERCENT MAN 1 % (0-2); EOSINOPHILS ABSOLUTE MAN 0.25 K/mm3 (0.00-0.68); EOSINOPHILS PERCENT MAN 4 % (0-6); LYMPHOCYTES ABSOLUTE MAN 1.15 K/mm3 (0.84-5.20); LYMPHOCYTES PERCENT MAN 18 % (21-46); METAMYELOCYTE ABSOLUTE MAN 0.06 K/mm3 (0.00-0.00); METAMYELOCYTE PERCENT MAN 1 % (0-0); MONOCYTES ABSOLUTE MAN 0.12 K/mm3 (0.16-1.47); MONOCYTES PERCENT MAN 2 % (4-13); NEUTROPHILS ABSOLUTE MAN 4.73 K/mm3 (1.96-9.15); SEG NEUTROPHILS PERCENT MAN 61 % (41-73); TOTAL CELLS COUNTED 100
[2024-01-30 20:10] VITALS: BP 147/36
[2024-01-30 23:36] VITALS: BP 121/59; BP 121/591
[2024-01-31 00:50] VITALS: BP 133/38
[2024-01-31] MEDS ORDERED: Dose Adjust by Pharmacy XX STA ×2 (02:14→09:21)
[2024-01-31 04:23] LABS: Hematocrit 22.1 % (33.0-51.0); Hemoglobin 7.9 g/dL (11.5-16.0); Mean Corpuscular HGB 30.9 pg (26.0-34.0); Mean Corpuscular HGB Conc 35.7 g/dL (31.5-36.5); Mean Corpuscular Volume 86 fL (80-100); Mean Platelet Volume 11.6 fL (9.1-12.4); NRBC ABSOLUTE 0.16 K/mm3 (0.00-0.02); NRBC Auto 1.9 /100 WBC (0.0-0.2); Platelet Count 83 K/mm3 (150-400); RDW Coefficient Variation 14.5 % (11.7-14.2); RDW Standard Deviation 45.8 fL (35.1-46.3); Red Blood Cell Count 2.56 M/mm3 (3.80-5.20); White Blood Cell Count 8.29 K/mm3 (4.00-11.30)
[2024-01-31 04:40] LABS: Albumin, Blood 2.1 g/dL (3.4-5.0); Anion Gap 27 mmol/L (3-11); Blood Urea Nitrogen 46 mg/dL (8-24); Bun/Creatinine Ratio 15.4 (12.0-20.0); CO2, Blood 19 mmol/L (21-32); Calcium, Blood 6.2 mg/dL (8.5-10.1); Chloride, Blood 92 mmol/L (98-108); Creatinine, Blood 2.99 mg/dL (0.40-1.00); Glomerular Filtration Rate 15 (60-); Glucose, Blood 132 mg/dL (70-99); Phosphorus, Blood 5.3 mg/dL (2.5-4.9); Sodium, Blood 134 mmol/L (136-145)
[2024-01-31 05:00] LABS: PCO2 Arterial 22.5 mmHg (35-45); PO2 Arterial 108 mmHg (80-100); pH Blood Arterial 7.52 (7.35-7.45)
[2024-01-31 05:29] LABS: BAND PERCENT MAN 9 % (0-8); EOSINOPHILS ABSOLUTE MAN 0.82 K/mm3 (0.00-0.68); EOSINOPHILS PERCENT MAN 10 % (0-6); LYMPHOCYTES ABSOLUTE MAN 1.24 K/mm3 (0.84-5.20); LYMPHOCYTES PERCENT MAN 15 % (21-46); MONOCYTES ABSOLUTE MAN 0.24 K/mm3 (0.16-1.47); MONOCYTES PERCENT MAN 3 % (4-13); NEUTROPHILS ABSOLUTE MAN 5.88 K/mm3 (1.96-9.15); SEG NEUTROPHILS PERCENT MAN 62 % (41-73); TOTAL CELLS COUNTED 100
[2024-01-31 05:30] LABS: BASOPHILS PERCENT MAN 0 % (0-2); METAMYELOCYTE ABSOLUTE MAN 0.08 K/mm3 (0.00-0.00); METAMYELOCYTE PERCENT MAN 1 % (0-0)
[2024-01-31] MEDS ORDERED: CALCIUM GLUC IN NACL, ISO-OSM 100 ML IV ONE (05:50)
[2024-01-31 08:27] LABS: Anion Gap 27 mmol/L (3-11); Blood Urea Nitrogen 46 mg/dL (8-24); Bun/Creatinine Ratio 15.1 (12.0-20.0); CO2, Blood 19 mmol/L (21-32); Calcium, Blood 6.7 mg/dL (8.5-10.1); Chloride, Blood 90 mmol/L (98-108); Creatinine, Blood 3.04 mg/dL (0.40-1.00); Glomerular Filtration Rate 14 (60-); Glucose, Blood 134 mg/dL (70-99); Phosphorus, Blood 5.3 mg/dL (2.5-4.9); Potassium, Blood 3.8 mmol/L (3.5-5.5); Sodium, Blood 132 mmol/L (136-145)
[2024-01-31] MEDS ORDERED: Sodium Bicarb 8.4% Inj 150 MEQ in Dextrose 5% 1,000 ML IV SCH (08:50)
[2024-01-31] MEDS ORDERED: Calcium Chloride 10% 2,000 MG in NS 100 ML IV SCH (10:00)
[2024-01-31] MEDS ORDERED: Scopolamine Hydrobromide Patch TOP PRN (13:35)
[2024-01-31] MEDS ORDERED: Morphine Sulfate 20 MG/1ML 1 ML Oral Syringe SL PRN (13:35)
[2024-01-31] MEDS ORDERED: LORazepam 2 MG/ML 1ML Injection IV PRN (13:35)
[2024-01-31] MEDS ORDERED: Atropine Sulfate 1% Opth Soln 2ML BTL SL PRN (13:35)
[2024-01-31] MEDS ORDERED: Ondansetron HCl 2 MG / ML 2ML Vial IV PRN (13:35)
[2024-01-31] MEDS ORDERED: HYDROmorphone HCl/Pf 1MG SYR IV PRN (13:35)
[2024-01-31] MEDS ORDERED: Morphine Sulfate 10 MG/ML 1MLSYR IV PRN (13:35)
[2024-01-31] MEDS ORDERED: Morphine Sulfate 10 MG/ML 1MLSYR INH PRN (13:35)
[2024-01-31] MEDS ORDERED: Haloperidol Lactate Inj. 5 MG/ML Injection IV PRN (13:35)
[2024-02-03 10:46] LABS: Calcium, Ionized (POC) 1.03 mmol/L (1.10-1.46); Chloride (POC) 104 mmol/L (98-108); Creatinine (POC) 1.7 mg/dL (0.6-1.0); Glucose (ISTAT POC) 251 mg/dL (70-99); Hemoglobin (POC) 16.7 g/dL (12.0-16.0); Potassium (POC) 4.6 mmol/L (3.5-5.5); Sodium (POC) 135 mmol/L (135-148); Total CO2 (POC) 17 mmol/L (21-32)
== END 2024-01-31 15:38 | DRG 853 ==
LOC: ER 12:48 → PCU 18:21 → ICUE 18:21 → ERHOLD 18:21 → PCU 01-28 03:12 → ICUE 01-28 10:06
PROVIDERS: Emergency Medicine; Internal Medicine Critical Care Medicine; Student in an Organized Health Care Education/Training Program; Surgery; ADMIT Internal Medicine
PROC: 3E03329 Introduction of Other Anti-infective into Peripheral Vein, Percutaneous Approach (ICD-10-PCS; 2024-01-27)
PROC: 0DNU0ZZ Release Omentum, Open Approach (ICD-10-PCS; 2024-01-28)
PROC: 04753ZZ Dilation of Superior Mesenteric Artery, Percutaneous Approach (ICD-10-PCS; 2024-01-28)
PROC: B4141ZZ Fluoroscopy of Superior Mesenteric Artery using Low Osmolar Contrast (ICD-10-PCS; 2024-01-28)
PROC: 3E05317 Introduction of Other Thrombolytic into Peripheral Artery, Percutaneous Approach (ICD-10-PCS; 2024-01-28)
PROC: 5A1945Z Respiratory Ventilation, 24-96 Consecutive Hours (ICD-10-PCS; 2024-01-28)
PROC: 02HV33Z Insertion of Infusion Device into Superior Vena Cava, Percutaneous Approach (ICD-10-PCS; 2024-01-28)
PROC: 3E033XZ Introduction of Vasopressor into Peripheral Vein, Percutaneous Approach (ICD-10-PCS; 2024-01-28)
PROC: 4A133R1 Monitoring of Arterial Saturation, Peripheral, Percutaneous Approach (ICD-10-PCS; 2024-01-28)
PROC: 0DNW0ZZ Release Peritoneum, Open Approach (ICD-10-PCS; principal; 2024-01-28 16:30)
PROC: 03HY32Z Insertion of Monitoring Device into Upper Artery, Percutaneous Approach (ICD-10-PCS; 2024-01-29)
PROC: 4A133B1 Monitoring of Arterial Pressure, Peripheral, Percutaneous Approach (ICD-10-PCS; 2024-01-29)
PROC: 4A133J1 Monitoring of Arterial Pulse, Peripheral, Percutaneous Approach (ICD-10-PCS; 2024-01-29)
PROC: 30233N1 Transfusion of Nonautologous Red Blood Cells into Peripheral Vein, Percutaneous Approach (ICD-10-PCS; 2024-01-31)
DX: A41.9 Sepsis, unspecified organism (principal); J95.821 Acute postprocedural respiratory failure; K55.041 Focal (segmental) acute infarction of large intestine; R65.21 Severe sepsis with septic shock; N17.0 Acute kidney failure with tubular necrosis; K72.00 Acute and subacute hepatic failure without coma; Z51.5 Encounter for palliative care; Z66 Do not resuscitate; E87.1 Hypo-osmolality and hyponatremia; E87.20 Acidosis, unspecified; E87.3 Alkalosis; R57.1 Hypovolemic shock; R55 Syncope and collapse; E78.5 Hyperlipidemia, unspecified; E83.51 Hypocalcemia; E03.9 Hypothyroidism, unspecified; I12.9 Hypertensive chronic kidney disease with stage 1 through stage 4 chronic kidney disease, or unspecified chronic kidney disease; E11.22 Type 2 diabetes mellitus with diabetic chronic kidney disease; N18.30 Chronic kidney disease, stage 3 unspecified; K59.00 Constipation, unspecified; R19.7 Diarrhea, unspecified; R41.81 Age-related cognitive decline; F32.A Depression, unspecified; F41.9 Anxiety disorder, unspecified; T50.8X5A Adverse effect of diagnostic agents, initial encounter; E11.51 Type 2 diabetes mellitus with diabetic peripheral angiopathy without gangrene; M51.9 Unspecified thoracic, thoracolumbar and lumbosacral intervertebral disc disorder; E11.649 Type 2 diabetes mellitus with hypoglycemia without coma; I36.1 Nonrheumatic tricuspid (valve) insufficiency; Z95.820 Peripheral vascular angioplasty status with implants and grafts; Z79.82 Long term (current) use of aspirin; Z95.0 Presence of cardiac pacemaker; Z85.3 Personal history of malignant neoplasm of breast; Z92.3 Personal history of irradiation; Z85.41 Personal history of malignant neoplasm of cervix uteri; Z90.710 Acquired absence of both cervix and uterus; Z90.722 Acquired absence of ovaries, bilateral; Z90.79 Acquired absence of other genital organ(s); Z86.14 Personal history of Methicillin resistant Staphylococcus aureus infection
CPT/HCPCS: 36215; 36415; 36430; 36600; 37211; 37246; 51701; 70450; 71045; 72125; 74174; 74176; 75726; 76937; 80047; 80048; 80053; 80069; 81001; 82010; 82330; 82533; 82803; 82947; 83605; 83735; 83880; 84100; 84443; 84484; 85014; 85025; 85027; 85520; 85610; 85730; 86850; 86900; 86901; 86923; 87040; 87086; 87507; 93005; 93010; 93306; 94002; 94003; 94762; 96365-59; 99152; 99153; 99291-25; A9270; C1725; C1760; C1769; C1887; C1894; J0171; J0612; J1100; J1644; J1720; J2371; J2405; J2543; J2704; J2997; J3010; J7030; J7042; J7050; J7060; J7070; J7120; J7799; P9016; P9047; Q9967